=== PATIENT | female | born 1990 | race Caucasian/White ===

== ENCOUNTER 2017-11-19 11:22 | Emergency (ER) | payer SELFPAY ==
--- NOTE | 2017-11-19 12:24 | EDM.PDOC ---
ED HPI GENERAL MEDICAL PROBLEM - General Chief Complaint: Upper Extremity Injury/Pain Stated Complaint: RIGHT HAND INJURY Time Seen by Provider: 11/19/17 11:57 Source of Information: Reports: Patient History Limitations: Reports: No Limitations - History of Present Illness INITIAL COMMENTS - FREE TEXT/NARRATIVE: 27-year-old female presents for evaluation and treatment of injury to the right hand. Patient reports on Monday she hit her hand against a door. She states initially she had numbness and tingling to the right hand fingers 4 and 5. Reports numbness and tingling has resolved but she still continues to have pain primarily to the right hand fourth and fifth metacarpals and pain with radial and ulnar deviation. Patient is right-handed. Location: Reports: Upper Extremity, Right Left Lower Hand Pain Score (Numeric/FACES): 6 - Related Data Allergies Allergy/AdvReac Type Severity Reaction Status Date / Time bacitracin Allergy Hives Verified 11/19/17 11:53 Home Meds: Home Meds Ibuprofen 400 mg PO Q6HR PRN 11/19/17 [History] Past Medical History - Past Health History Medical/Surgical History: Denies Medical/Surgical History Genitourinary History: Reports: Other (See Below) Other Genitourinary History: gastric ulcer Psychiatric History: Reports: None - Past Surgical History Other HEENT Surgeries/Procedures: wisdom teeth removed Social & Family History - Tobacco Use Smoking Status *Q: Current Every Day Smoker Years of Tobacco use: 12 Packs/Tins Daily: 1 - Caffeine Use Caffeine Use: Reports: Coffee, Tea Caffeine Use Comment: black tea - Recreational Drug Use Recreational Drug Use: Yes Drug Use in Last 12 Months: Yes Recreational Drug Type: Reports: Marijuana/Hashish Recreational Drug Use Frequency: Daily Review of Systems - Review of Systems Review Of Systems: See Below Musculoskeletal: Reports: Hand Pain (4th and 5th metacarpals, associated minor swelling) Skin: Denies: Pruritis Neurological: Reports: Numbness (initally to finger 4 and 5 now resolved), Tingling (initally to fingers 4 and 5 now resolved) ED EXAM, GENERAL - Physical Exam Exam: See Below Exam Limited By: No Limitations General Appearance: Alert, WD/WN, No Apparent Distress Respiratory/Chest: No Respiratory Distress Cardiovascular: Normal Peripheral Pulses, Regular Rate, Rhythm Peripheral Pulses: 2+: Radial (R) Extremities: Normal Inspection, Normal Range of Motion (pain with radial and ulnar deviation, able to make a fist, adduct/abduct fingers, flex and extend fingers and flex and extend wrist), Normal Capillary Refill, Other (minor swelling to the 4th and 5th metacarpals; tenderness to palpation to metcarpals 4 and 5). No: Increased Warmth Neurological: Alert, Oriented Psychiatric: Normal Affect, Normal Mood Skin Exam: Warm, Dry, Normal Color Course - Vital Signs Last Recorded V/S: Last Vital Signs Temp 36.6 C 11/19/17 11:41 Pulse 62 11/19/17 11:41 Resp 16 11/19/17 11:41 BP 103/72 11/19/17 11:41 Pulse Ox 100 11/19/17 11:41 - Radiology Interpretation Free Text/Narrative:: Right hand: 4 views of the right hand were obtained. Comparison: No priors and study. Joint spaces are preserved. No fracture, dislocation or other bony abnormality is seen. Impression: 1. No bony abnormality is seen on right hand exam. - Re-Assessments/Exams Free Text/Narrative Re-Assessment/Exam: 11/19/17 12:55 Reviewed the x-ray results with the patient. We will discharge home at this time. Discharge instructions as documented. Departure - Departure Time of Disposition: 12:56 Disposition: Home, Self-Care 01 Condition: Good Clinical Impression: Hand injury - Discharge Information Instructions: Hand Pain Referrals: PCP,None [Primary Care Provider] - Forms: ED Department Discharge Additional Instructions: Recommend an Jeremiah bandage the hand help reduce swelling. Recommend icing the hand 3 to 4 times a day for 10-15 minutes. [id number] Tylenol or Motrin as needed for pain relief. Expect this to last 1-2 weeks. If you continue to have pain after 2 weeks follow -up with family medicine. you may need to have this re-x-rayed. please return to the er if your symptoms change or worsen.
--- NOTE | 2017-11-19 14:55 | CR ---
Right hand: Four views of the right hand were obtained. Comparison: No prior study. Joint spaces are preserved. No fracture, dislocation or other bony abnormality is seen. Impression: 1. No bony abnormality is seen on right hand exam. Diagnostic code #1
== END 2017-11-19 13:05 | disposition home or self-care (01) ==
LOC: JD.ED 11:22
DX: S69.91XA Unspecified injury of right wrist, hand and finger(s), initial encounter (principal); F17.210 Nicotine dependence, cigarettes, uncomplicated; Z88.1 Allergy status to other antibiotic agents; W22.8XXA Striking against or struck by other objects, initial encounter
CPT/HCPCS: 73130-26-RT; 73130-RT; 99283

== ENCOUNTER 2017-12-28 08:01 | Emergency (ER) | payer SELFPAY ==
--- NOTE | 2017-12-28 08:22 | EDM.PDOC ---
ED HPI GENERAL MEDICAL PROBLEM - General Chief Complaint: Genitourinary Problem Stated Complaint: BURNING WITH URINATION AND LOW BACK PAIN Time Seen by Provider: 12/28/17 08:17 Source of Information: Reports: Patient History Limitations: Reports: No Limitations - History of Present Illness INITIAL COMMENTS - FREE TEXT/NARRATIVE: 27 yo female presents with pain with urination, frequency for the past 3-4 days. Over the last day she believes her symptoms have worsened and this morning she reports nausea, vomiting and increased low back pain. She reports the sensation of incomplete voiding, urinary frequency and burning with urination. She denies hematuria or h/o kidney stones or previous UTIs. This morning shakes. Some chills and fever. Feels better after vomiting 1. Emesis was mostly bilious without blood. 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 Allergy Airway Uncoded 12/28/17 08:18 Tightness Home Meds: Home Meds Levofloxacin [Levaquin] 500 mg PO DAILY #7 tab 12/28/17 [Rx] Past Medical History - Past Health History Medical/Surgical History: Denies Medical/Surgical History Genitourinary History: Reports: Other (See Below) Other Genitourinary History: gastric ulcer Psychiatric History: Reports: None - Past Surgical History Other HEENT Surgeries/Procedures: wisdom teeth removed Social & Family History - Caffeine Use Caffeine Use: Reports: Coffee, Tea Caffeine Use Comment: black tea ED ROS GENERAL - Review of Systems Review Of Systems: See Below Constitutional: Reports: Fever, Chills, Malaise (This morning), Fatigue, Decreased Appetite HEENT: Reports: No Symptoms Respiratory: Reports: No Symptoms Cardiovascular: Reports: No Symptoms Endocrine: Reports: No Symptoms GI/Abdominal: Reports: Abdominal Pain (Suprapubic pressure discomfort) : Reports: Dysuria, Frequency, Urgency. Denies: Flank Pain, Hematuria Musculoskeletal: Denies: Back Pain Skin: Reports: No Symptoms Neurological: Reports: No Symptoms Psychiatric: Reports: No Symptoms Hematologic/Lymphatic: Reports: No Symptoms Immunologic: Reports: No Symptoms ED EXAM, RENAL/ - Physical Exam Exam: See Below Exam Limited By: No Limitations General Appearance: Alert, WD/WN, No Apparent Distress, Other (Afebrile.) Respiratory/Chest: No Respiratory Distress, Lungs Clear, Normal Breath Sounds, No Accessory Muscle Use Cardiovascular: Normal Peripheral Pulses, Regular Rate, Rhythm, No Edema, No Gallop, No Murmur. No: Tachycardia GI/Abdominal: Normal Bowel Sounds, Soft, No Organomegaly, Tender (Suprapubic pressure discomfort only.), Other Extremities: Normal Inspection, Normal Range of Motion, Non-Tender, No Pedal Edema Neurological: Alert, Oriented, CN II-XII Intact, Normal Cognition, Normal Gait Psychiatric: Normal Affect, Normal Mood Skin Exam: Warm, Dry, Intact, Normal Color, No Rash Course - Vital Signs Last Recorded V/S: Last Vital Signs Temp 36.9 C 12/28/17 08:19 Pulse 58 L 12/28/17 09:19 Resp 16 12/28/17 09:19 BP 100/60 12/28/17 09:19 Pulse Ox 100 12/28/17 09:19 - Orders/Labs/Meds Orders: Active Orders 24 hr Category Date Time Status CULTURE URINE [RM] Stat Lab 12/28/17 08:10 Received HCG QUALITATIVE,URINE [URCHEM] Stat Lab 12/28/17 08:16 Ordered UA W/MICROSCOPIC [URIN] Stat Lab 12/28/17 08:10 Ordered Labs: Laboratory Tests 12/28/17 12/28/17 Range/Units 08:10 08:16 Urine Color [place] H (Yellow) Urine Appearance Slt cloudy H (Clear) Urine pH 8.5 H (5.0-8.0) Ur Specific [place] 1.020 (1.005-1.030) Urine Protein 2+ H (Negative) Urine Glucose (UA) Trace H (Negative) Urine Ketones Trace H (Negative) Urine Occult Blood 2+ H (Negative) Urine Nitrite Positive H (Negative) Urine Bilirubin 1+ H (Negative) Urine Urobilinogen 2.0 H (0.2-1.0) Ur Leukocyte Esterase 3+ H (Negative) Urine RBC 10-20 H (0-5) /hpf Urine WBC 10-20 H (0-5) /hpf Ur Epithelial Cells 5-10 H (0-5) /hpf Urine Bacteria Few (FEW) /hpf Urine Mucus Few (FEW) /hpf Urine HCG, Qual Negative (NEGATIVE) Meds: Medications Discontinued Medications Generic Name Dose Route Start Last Admin Trade Name Larissa PRN Reason Stop Dose Admin Ondansetron HCl 4 mg 12/28/17 08:28 12/28/17 08:52 Zofran Odt PO 12/28/17 08:29 4 mg ONETIME ONE Administration - Radiology Interpretation Free Text/Narrative:: 27-year-old female attends the ED with urinary tract symptoms of dysuria urgency and frequency starting day before yesterday. She states she took Midol 2 days ago for low back discomfort. Maybe her. Was coming. Skull is she developed dysuria urgency and frequency this morning had nausea and vomiting 1 associated with mild fever and chills. Feels better after vomiting. Denies any flank pain. She's been taking Azo [id number] which is created a orange color to her urine. She has never had a urinary tract infection before. She should not denies any possibility of as she is homosexual. Plan urinalysis to be done. Given Zofran 4 mg sublingually to ease her nausea at this time. - Re-Assessments/Exams Free Text/Narrative Re-Assessment/Exam: 12/28/17 09:00 Urinalysis is returned. His origin color due to taking Azo over- the-counter. This is also altered the urinary pH is elevated at 8.5. 2+ protein year 2+ occult blood positive nitrates 1+ bilirubin 3+ leukocyte esterase 10-20 RBCs per power field 10-20 W species her half her field beta-hCG was negative. She will be placed on Levaquin 500 mg once daily for 7 days to clear up urinary tract infection. Departure - Departure Time of Disposition: 09:02 Disposition: Home, Self-Care 01 Condition: Fair Clinical Impression: Urinary tract infection Qualifiers: Urinary tract infection type: site unspecified - Discharge Information Prescriptions: Levofloxacin [Levaquin] 500 mg PO DAILY #7 tab Instructions: Urinary Tract Infection, Adult Referrals: PCP,None [Primary Care Provider] - Forms: ED Department Discharge Additional Instructions: Evaluation the emergency room this morning in regards to signs and symptoms of lower urinary tract infection. This is confirmed on urinalysis with many pus cells and positive nitrates in the urinalysis. Urine culture will be ordered although it may not grow out anything that she been taking [id number] Azo to ease the discomfort. Treatment is to take antibiotic Levaquin 500 milligrams once daily for the next 7 days to clear up infection. She should notice a difference in symptoms within 24 hours time. Continue to drink plenty of fluids to flush the system. Diet as tolerated - My Orders Last 24 Hours: My Active Orders 12/28/17 08:10 CULTURE URINE [RM] Stat UA W/MICROSCOPIC [URIN] Stat 12/28/17 08:16 HCG QUALITATIVE,URINE [URCHEM] Stat - Assessment/Plan Last 24 Hours: My Active Orders 12/28/17 08:10 CULTURE URINE [RM] Stat UA W/MICROSCOPIC [URIN] Stat 12/28/17 08:16 HCG QUALITATIVE,URINE [URCHEM] Stat
[2017-12-28] MEDS ORDERED: Ondansetron 4 MG Tab.DIS PO ONE (08:28)
== END 2017-12-28 09:15 | disposition home or self-care (01) ==
LOC: JD.ED 08:01
DX: N39.0 Urinary tract infection, site not specified (principal); Z88.1 Allergy status to other antibiotic agents
CPT/HCPCS: 81001; 81025; 87086; 99283; A9270

== ENCOUNTER 2017-12-31 08:33 | Emergency (ER) | payer SELFPAY ==
--- NOTE | 2017-12-31 08:55 | EDM.PDOC ---
ED HPI GENERAL MEDICAL PROBLEM - General Chief Complaint: Genitourinary Problem Stated Complaint: POSS. UTI Time Seen by Provider: 12/31/17 08:55 Source of Information: Reports: Patient History Limitations: Reports: No Limitations - History of Present Illness INITIAL COMMENTS - FREE TEXT/NARRATIVE: 27-year-old female returns to the ED with increased right flank pain right lower abdominal pain now radiating down towards the vulva vagina. She was diagnosed with a suspect urinary tract infection last week and she did have a positive urinalysis with heavy use of Azo which interrupted the culture. She's been on Levaquin 500 mg once daily and was doing fine up until again this morning when the pain recurred. The history now is much more suggestive of a kidney stone. Current pain is felt in the right groin rating to the vulva vagina. Associated nausea and vomiting due to the intensity of the pain. She has a family history of stones but she herself has never had a kidney stone in the past. Denies fever or chills. Onset: Other (Initial symptoms started Monday,December 27. She was treated for urinary tract infection starting , December 28 and first several days felt pretty good. However getting pain returned this morning associate with nausea and vomiting) Onset Date: 12/31/17 (Recurrence of right flank pain right groin pain suggestive of renal stone) Duration: Hour(s): Location: Reports: Abdomen (Right flank right lower abdomen and groin pain), Radiates to (Vulva.) Quality: Reports: Ache, Sharp, Stabbing Severity: Severe (Pain can be as much is 10 out of 10 currently rates as 4-6 out of 10.) Improves with: Reports: None Worsens with: Reports: None (No position is comfortable) Context: Denies: Activity, Exercise, Trauma, Other Associated Symptoms: Reports: Fever/Chills 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 Currently on a course of Levaquin 500 mg daily which is completed for tabs) Lower Pelvic Pain Score (Numeric/FACES): 4 - Related Data Allergies Allergy/AdvReac Type Severity Reaction Status Date / Time bacitracin Allergy Hives Verified 12/31/17 08:43 antibiotic? Allergy Airway Uncoded 12/31/17 08:43 Tightness Home Meds: Home Meds Levofloxacin [Levaquin] 500 mg PO DAILY #7 tab 12/28/17 [Rx] Ondansetron [Zofran] 4 mg BUCCAL Q6H PRN #10 tab 12/31/17 [Rx] oxyCODONE HCl/Acetaminophen [Percocet 5-325 mg Tablet] 1 - 2 each PO Q4H PRN # 20 tablet 12/31/17 [Rx] Past Medical History - Past Health History Medical/Surgical History: Denies Medical/Surgical History Genitourinary History: Reports: Other (See Below) Other Genitourinary History: gastric ulcer Psychiatric History: Reports: None - Past Surgical History Other HEENT Surgeries/Procedures: wisdom teeth removed Social & Family History - Caffeine Use Caffeine Use: Reports: Coffee, Tea Caffeine Use Comment: black tea - Recreational Drug Use Recreational Drug Use: Yes Drug Use in Last 12 Months: Yes Recreational Drug Type: Reports: Marijuana/Hashish - Living Situation & Occupation Living situation: Reports: Single Occupation: Employed Social History Comment: homosexual. ED ROS GENERAL - Review of Systems Review Of Systems: See Below Constitutional: Reports: Chills, Malaise (Intermittent chills), Weakness, Fatigue, Decreased Appetite. Denies: Fever, Weight Loss (Since sleep is been disrupted due to the pain) HEENT: Reports: No Symptoms Respiratory: Reports: No Symptoms Cardiovascular: Reports: No Symptoms Endocrine: Reports: No Symptoms GI/Abdominal: Reports: Abdominal Pain : Reports: Flank Pain (Right side intermittently.) Musculoskeletal: Reports: No Symptoms Skin: Reports: No Symptoms Neurological: Reports: No Symptoms Psychiatric: Reports: No Symptoms Hematologic/Lymphatic: Reports: No Symptoms Immunologic: Reports: No Symptoms ED EXAM, GI/ABD - Physical Exam Exam: See Below Exam Limited By: No Limitations General Appearance: Alert, WD/WN, Mild Distress Eyes: Bilateral: Normal Appearance (No jaundice.) Throat/Mouth: Normal Inspection, Normal Lips, Normal Teeth, Normal Gums Head: Atraumatic, Normocephalic Neck: Normal Inspection, Supple, Non-Tender, Full Range of Motion Respiratory/Chest: No Respiratory Distress, Lungs Clear, Normal Breath Sounds Cardiovascular: Normal Peripheral Pulses, Regular Rate, Rhythm, No Edema GI/Abdominal Exam: Normal Bowel Sounds, Soft, Non-Tender, No Organomegaly, No Abnormal Bruit, No Mass, Pelvis Stable. No: Guarding Back Exam: Normal Inspection, Full Range of Motion. No: CVA Tenderness (L), CVA Tenderness (R) Extremities: Normal Inspection, Normal Range of Motion, Non-Tender, No Pedal Edema Neurological: Alert, Oriented, CN II-XII Intact, Normal Cognition Psychiatric: Normal Affect, Normal Mood Skin Exam: Warm, Dry, Intact, Normal Color, No Rash Course - Vital Signs Last Recorded V/S: Last Vital Signs Temp 37.1 C 12/31/17 08:39 Pulse 78 12/31/17 08:39 Resp BP 111/78 12/31/17 08:39 Pulse Ox 100 12/31/17 08:39 - Orders/Labs/Meds Orders: Active Orders 24 hr Category Date Time Status Abdomen wo Cont [CT] Stat Exams 12/31/17 09:02 Taken URINALYSIS W/MICROSCOPIC [UA W/MICROSCOPIC] [URIN] Stat Lab 12/31/17 09:15 Ordered Dextrose 5%-0.9% NaCl [Dextrose 5%-Normal Saline] 1,000 Med 12/31/17 09:15 Active ml IV ASDIRECTED Ketorolac [Toradol] Med 12/31/17 10:00 Active 30 mg IVPUSH ONETIME Durable Medical Equipment for Discharge [DME for Oth 12/31/17 09:55 Ordered Discharge] [COMM] Stat Medication Orders Dextrose/Sodium Chloride (Dextrose 5%-Normal Saline) 1,000 mls @ 500 mls/hr IV ASDIRECTED [facility] Last Admin: 12/31/17 09:28 Dose: 500 mls/hr Ketorolac Tromethamine (Toradol) 30 mg IVPUSH ONETIME [facility] Last Admin: 12/31/17 10:17 Dose: 30 mg Labs: Laboratory Tests 12/31/17 Range/Units 09:15 Urine Color Light yellow (Yellow) Urine Appearance Clear (Clear) Urine pH 8.5 H (5.0-8.0) Ur Specific [place] 1.020 (1.005-1.030) Urine Protein Negative (Negative) Urine Glucose (UA) Negative (Negative) Urine Ketones Negative (Negative) Urine Occult Blood 2+ H (Negative) Urine Nitrite Negative (Negative) Urine Bilirubin Negative (Negative) Urine Urobilinogen 0.2 (0.2-1.0) Ur Leukocyte Esterase Negative (Negative) Urine RBC 5-10 H (0-5) /hpf Urine WBC 0-5 (0-5) /hpf Ur Epithelial Cells 0-5 (0-5) /hpf Urine Bacteria Few (FEW) /hpf Urine Mucus Not seen (FEW) /hpf Meds: Medications Generic Name Dose Route Start Last Admin Trade Name Larissa PRN Reason Stop Dose Admin Dextrose/Sodium Chloride 1,000 mls @ 500 mls/hr 12/31/17 09:15 12/31/17 09:28 Dextrose 5%-Normal Saline IV 500 mls/hr ASDIRECTED LISA Administration Ketorolac Tromethamine 30 mg 12/31/17 10:00 12/31/17 10:17 Toradol IVPUSH 30 mg ONETIME LISA Administration Discontinued Medications Generic Name Dose Route Start Last Admin Trade Name Larissa PRN Reason Stop Dose Admin Hydromorphone HCl 0.5 mg 12/31/17 09:02 12/31/17 09:28 Dilaudid IVPUSH 12/31/17 09:03 0.5 mg ONETIME ONE Administration Metoclopramide HCl 5 mg 12/31/17 09:02 12/31/17 09:27 Reglan IVPUSH 12/31/17 09:03 5 mg ONETIME ONE Administration - Radiology Interpretation Free Text/Narrative:: 27-year-old female presents to the ED with severe right lower quadrant abdominal pain rating towards the vulva. Pain also in her right flank. She was treated as last week for a suspect urinary tract infection with reported fever chills nausea and dysuria urgency frequency. The urinalysis was contaminated by 80s with the patient been taking but otherwise was strongly positive. The culture did not grow much just contaminants. This could be because of the Azo however. She is on Levaquin 500 mg once daily and is currently on day 4 of 7 day treatment plan. Today however her pain came on suddenly highly suggestive of a kidney stone. The pain is rating down into the right groin and vulvar area suggesting its in the UVJ. Plan IV D5 normal saline at 500 mils per hour. Given Dilaudid 0.5 mg IV with Reglan 5 mg IV as she is not very big. CT the abdomen / pelvis will be done per renal protocol. - Re-Assessments/Exams Free Text/Narrative Re-Assessment/Exam: 12/31/17 09:56 CT evaluation reveals moderate hydronephrosis of the right kidney with dilated renal pelvis. There appears to be a 2.8-3 mm stone in the distal right ureter causing this obstruction. It looks like it has about 3 cm to go before reaches the urinary bladder. There are multiple small stones in both renal parenchyma largest is about 3 mm on the left side near the renal pelvis. To be therefore discharged home on Percocet tabs 5/325 one or 2 every 4- 6 hours needed for pain relief. Zofran 4 mg sublingually every 4-6 hours needed for nausea or vomiting relief. The urinary cystoscopy to make sure she collects the stone and confirms she has passed it. She also reveals extensive constipation throughout the entire colon. Patient will be instructed to use MiraLAX powder 17 g once daily for the next few weeks to make sure her bowels become more regular. Particularly while she is on the pain medication. Departure - Departure Time of Disposition: 09:58 Disposition: Home, Self-Care 01 Condition: Fair Clinical Impression: Renal colic on right side - Discharge Information Prescriptions: Ondansetron [Zofran] 4 mg BUCCAL Q6H PRN #10 tab PRN Reason: nausea or vomiting oxyCODONE HCl/Acetaminophen [Percocet 5-325 mg Tablet] 1 - 2 each PO Q4H PRN # 20 tablet PRN Reason: pain relief. Instructions: Kidney Stones, Kidney Stones, [id number] Referrals: PCP,None [Primary Care Provider] - Forms: ED Department Discharge Additional Instructions: Evaluation the emergency room today in regards to sudden onset of severe right flank pain associated with pressure sensation down into the gentle area. Previously seen last week with signs and symptoms of urinary tract infection with reported fever chills dysuria urgency and frequency. Unfortunately to to taking Azo the urine culture grew out only a few organisms. However the urinalysis was suggestive of an infective process at that time with nitrates blood and pus cells in the urine. You're treated with Levaquin 500 mg once daily and I want you to continue this antibiotic until it is completely done. CT scan done today reveals multiple stones in each kidney . There are 4 stones currently within the right kidney and 3 within the left. Currently there is a partially obstructing 3 mm stone in the lower part of the right ureter that is causing your current pain and refers the pain down towards the bladder and gentle area. Is likely to pass on its own sometime in the next week or 2. Hurts when it starts to move. Drink plenty of fluids and stay as active as possible. When the pain is severe take Zofran 4 mg under tongue and 10 minutes later take your Percocet tablet either one or 2 tablets every 4 hours. Due to her size I would suggest that one tablet first. He may also take Motrin 600 mg with it. Strain the urine until stone is been identified to have passed. The stone does not need to be analyzed. As above CT shows multiple stones in the kidneys and therefore you're to be on a no calcium added diet. Avoid Tums and Rolaids for heartburn as well. If you have not past the stone the next 2 weeks and follow- up with your personal care physician as urology consultation would be indicated at that time. The stone has a 95% chance of passage however. Also appreciated on CT scan that you have a fair amount of stool throughout the colon compatible with constipation. The pain pills tend to make this even worse. Strongly suggest that you purchase some MiraLAX powder 17 g once daily for the next 2 weeks to make sure your bowel stay regular and active. - My Orders Last 24 Hours: My Active Orders 12/31/17 09:02 Abdomen wo Cont [CT] Stat 12/31/17 09:15 URINALYSIS W/MICROSCOPIC [UA W/MICROSCOPIC] [URIN] Stat Dextrose 5%-0.9% NaCl [Dextrose 5%-Normal Saline] 1,000 ml IV ASDIRECTED 12/31/17 09:55 Durable Medical Equipment for Discharge [DME for Discharge] [COMM] Stat 12/31/17 10:00 Ketorolac [Toradol] 30 mg IVPUSH ONETIME - Assessment/Plan Last 24 Hours: My Active Orders 12/31/17 09:02 Abdomen wo Cont [CT] Stat 12/31/17 09:15 URINALYSIS W/MICROSCOPIC [UA W/MICROSCOPIC] [URIN] Stat Dextrose 5%-0.9% NaCl [Dextrose 5%-Normal Saline] 1,000 ml IV ASDIRECTED 12/31/17 09:55 Durable Medical Equipment for Discharge [DME for Discharge] [COMM] Stat 12/31/17 10:00 Ketorolac [Toradol] 30 mg IVPUSH ONETIME
[2017-12-31] MEDS ORDERED: Metoclopramide 10 MG/2 ML SDV IVPUSH ONE (09:02)
[2017-12-31] MEDS ORDERED: HYDROmorphone 0.5 MG/0.5 ML SYRINGE IVPUSH ONE (09:02)
[2017-12-31] MEDS ORDERED: Dextrose 5%-0.9% NaCl 1,000 ML IV SCH (09:15)
[2017-12-31] MEDS ORDERED: Ketorolac 30 MG/ML SDV IVPUSH SCH (10:00)
--- NOTE | 2018-01-02 08:52 | CT ---
CT abdomen and pelvis Technique: Multiple axial sections were obtained from the top of the kidneys inferiorly through the pubic symphysis. Intravenous and oral contrast was not utilized. Study has been performed as a ureteral stone protocol. Findings: Multiple scattered nonobstructing calculi are seen within both kidneys. These all measure less than 5 mm. Right sided hydronephrosis is seen which is caused by an obstructing distal right ureteral stone measuring approximately 4 mm at the UVJ. No other abnormal calcifications are seen within the ureters. Visualized noncontrast appearance of the liver and spleen are within normal limits. Visualized adrenal glands are within normal limits. Visualized pancreas appears within normal limits as seen. Gallbladder contains no calcified gallstones. Aorta shows no aneurysmal dilatation. No retroperitoneal adenopathy or mesenteric abnormalities are seen. Mild increased stool is noted throughout the colon. No free fluid or inflammatory change is seen. Appendix is felt to be visualized and appears within normal limits. Impression: 1. Right-sided hydronephrosis caused by an obstructing distal right ureteral stone measuring around 4 mm. Nonobstructing calculi seen within both kidneys. 2. Mild increased stool throughout the colon. Diagnostic code #3 Agree with preliminary report issued by [employer] ([facility] preliminary report dictated on 12/31/17, 11:29 AM Central Time) [facility]
== END 2017-12-31 10:42 | disposition home or self-care (01) ==
LOC: JD.ED 08:33
DX: N23 Unspecified renal colic (principal); Z88.1 Allergy status to other antibiotic agents
CPT/HCPCS: 74150; 81001; 96361; 96374; 96375; 99284; J1170; J1885; J2765; J7042

== ENCOUNTER 2018-03-19 04:49 | Emergency (ER) | payer SELFPAY ==
[2018-03-19] MEDS ORDERED: Proparacaine 0.5% Ophth Soln 15 ML Bottle EYERT STA (05:05)
[2018-03-19] MEDS ORDERED: Fluorescein 0.6 MG Ophth Strip EYERT STA (05:06)
--- NOTE | 2018-03-19 05:32 | EDM.PDOC ---
ED HPI GENERAL MEDICAL PROBLEM - General Chief Complaint: Eye Problems Stated Complaint: [facility] Time Seen by Provider: 03/19/18 05:02 Source of Information: Reports: Patient History Limitations: Reports: No Limitations - History of Present Illness INITIAL COMMENTS - FREE TEXT/NARRATIVE: The patient states that a piece of wood from a broken would picture frame struck her right eye around 19:00 to 21:00 last night. She presents by EMS with right eye pain, a foreign body sensation, and photophobia. She is otherwise uninjured. The patient does not have a PCP. Right Eye Pain Score (Numeric/FACES): 10 - Related Data Allergies Allergy/AdvReac Type Severity Reaction Status Date / Time bacitracin Allergy Hives Verified 12/31/17 08:43 clindamycin Allergy Rash Verified 03/19/18 05:04 levofloxacin [From Levaquin] Allergy Numbness Verified 03/19/18 05:04 Home Meds: Home Meds Ketorolac [Acular 0.5% Ophth Soln] 1 drop EYERT Q6H PRN #1 bottle 03/19/18 [Rx] Past Medical History Gastrointestinal History: Reports: PUD - Past Surgical History HEENT Surgical History: Reports: Oral Surgery (3 wisdom teeth extracted) Social & Family History - Family History Family Medical History: Noncontributory - Tobacco Use Smoking Status *Q: Former Smoker Tobacco Use Within Last Twelve Months: Other (See Below) (Currently Vapes) Years of Tobacco use: 10 Packs/Tins Daily: 1 Month/Year Tobacco Last Used: Quit 2015 - Caffeine Use Caffeine Use: Reports: Coffee, Tea Caffeine Use Comment: black tea - Alcohol Use Alcohol Use History: No - Recreational Drug Use Recreational Drug Use: Yes Drug Use in Last 12 Months: Yes Recreational Drug Type: Reports: Marijuana/Hashish (last smoked early Mar 2018) , Other (see below) (Kratom) - Living Situation & Occupation Living situation: Reports: Single, Alone Occupation: Employed (longterm) ED ROS GENERAL - Review of Systems Review Of Systems: ROS reveals no pertinent complaints other than HPI. ED EXAM GENERAL W FULL EYE - Physical Exam Exam: See Below Exam Limited By: Other (Due to photophobia, the patient did not want the lights on) General Appearance: Alert, WD/WN Eyelids: Bilateral: Normal Appearance Conjunctiva & Sclera: Right: Injected, Left: Normal Appearance Cornea Exam: Right: Corneal Abrasion (5:00 position), Examined with Flourescein , Left: Normal Appearance Extraocular Movements: Bilateral: Intact Pupils: Normal Accommodation Pupillary Size: Bilateral: 5 mm Pupillary Reaction: Bilateral: Brisk Anterior Chamber: Bilateral: Normal Appearance Course - Vital Signs Last Recorded V/S: Last Vital Signs Temp 36.5 C 03/19/18 04:59 Pulse 78 03/19/18 04:59 Resp 18 03/19/18 04:59 BP 113/69 03/19/18 04:59 Pulse Ox 99 03/19/18 04:59 - Orders/Labs/Meds Meds: Medications Discontinued Medications Generic Name Dose Route Start Last Admin Trade Name Larissa PRN Reason Stop Dose Admin Fluorescein Sodium 0.6 mg 03/19/18 05:06 03/19/18 05:15 Ful-Bee EYERT 03/19/18 05:07 0.6 mg ONETIME STA Administration Proparacaine HCl 1 ml 03/19/18 05:05 03/19/18 05:17 Proparacaine 0.5% Ophth Soln EYERT 03/19/18 05:06 2 drop ONETIME STA Administration - Re-Assessments/Exams Free Text/Narrative Re-Assessment/Exam: 03/19/18 05:30 The right eye was anesthetized with proparacaine, then stained with fluorescein. A punctate corneal abrasion was seen at the 5 o'clock position. No other abnormalities identified, and no foreign body found. The patient will be discharged home with a prescription for Acular. Departure - Departure Time of Disposition: 05:26 Disposition: Home, Self-Care 01 Condition: Good Clinical Impression: Corneal abrasion, right - Discharge Information *PRESCRIPTION DRUG MONITORING PROGRAM REVIEWED*: Not Applicable *COPY OF PRESCRIPTION DRUG MONITORING REPORT IN PATIENT JACOB: Not Applicable Additional Instructions: You were seen in the emergency room for right eye pain, after being struck with a piece of wood. On examination, you have a corneal abrasion. A prescription for the eye-pain medicine Acular has been sent to [facility]. Instill 1 drop into your right eye every 6 hours, as needed for pain. You should expect this condition to resolve within 3-5 days. If it has not, please follow-up with an eye doctor, for further evaluation. If any other problems, please do not hesitate to return to the ER.
== END 2018-03-19 05:45 | disposition home or self-care (01) ==
LOC: JD.ED 04:49
DX: S05.01XA Injury of conjunctiva and corneal abrasion without foreign body, right eye, initial encounter (principal); Z87.891 Personal history of nicotine dependence; Z88.1 Allergy status to other antibiotic agents; W22.8XXA Striking against or struck by other objects, initial encounter
CPT/HCPCS: 99283

== ENCOUNTER 2023-08-28 12:28 | Emergency (ER) | payer BC, OTHER ==
[2023-08-28] MEDS ORDERED: Sodium Chloride 0.9% 10 ML Syringe FLUSH PRN (12:34)
[2023-08-28] MEDS ORDERED: HYDROmorphone 0.5 MG/0.5 ML Syringe IVPUSH ONE (12:37)
[2023-08-28 13:05] LABS: BASOPHILS PERCENT AUTO 0.8 % (0.0-1.0); EOSINOPHILS ABSOLUTE AUTO 0.1 K/mm3 (0.0-0.4); EOSINOPHILS PERCENT AUTO 2.2 % (0.0-6.0); HEMATOCRIT 37.2 % (37.0-47.0); HEMOGLOBIN 11.9 gm/dl (12.0-16.0); IMMATURE GRAN ABSOLUTE AUTO 0.02 K/mm3 (0.00-0.05); IMMATURE GRAN PERCENT AUTO 0.4 % (0.0-0.4); LYMPHOCYTES ABSOLUTE AUTO 1.6 K/mm3 (1.0-4.8); MEAN CORPUSCULAR HEMOGLOBIN 26.6 pg (28.0-32.0); MEAN PLATELET VOLUME 11.6 fl (9.4-12.3); MONOCYTES ABSOLUTE AUTO 0.5 K/mm3 (0.0-0.8); MONOCYTES PERCENT AUTO 9.3 % (0.0-8.0); NEUTROPHILS ABSOLUTE AUTO 2.8 K/mm3 (1.8-7.7); NEUTROPHILS PERCENT AUTO 56.3 % (41.0-71.0); PLATELET COUNT,PLT 267 K/mm3 (150-400); RED BLOOD CELL COUNT 4.48 M/mm3 (4.10-5.30); WHITE BLOOD CELL COUNT,WBC 5.04 K/mm3 (3.9-11.3)
[2023-08-28] MEDS ORDERED: Iopamidol 612 MG/ML 100 ML Bottle IVPUSH ONE (13:09)
[2023-08-28] MEDS ORDERED: Sodium Chloride 0.9% 10 ML Syringe FLUSH ONE (13:09)
[2023-08-28 13:38] LABS: A/G RATIO 1.1 (1-2); ALBUMIN 3.8 g/dl (3.4-5.0); ANION GAP 14.4 (5-15); BILIRUBIN TOTAL 0.3 mg/dL (0.2-1.0); CALCIUM 9.1 mg/dL (8.5-10.1); CREATININE 0.8 mg/dL (0.55-1.02); EST CRCL DRUG DOSING (CG) 79.11 mL/min; POTASSIUM,K 3.4 mEq/L (3.5-5.1); PROTEIN TOTAL,TP 7.4 g/dl (6.4-8.2)
== END 2023-08-28 16:08 | disposition home or self-care (01) ==
LOC: JD.ED 12:28
DX: S29.9XXA Unspecified injury of thorax, initial encounter (principal); V89.2XXA Person injured in unspecified motor-vehicle accident, traffic, initial encounter; Z88.1 Allergy status to other antibiotic agents
CPT/HCPCS: 36415; 70450; 71045; 71260; 72125; 74177; 80053; 80307; 83690; 84703; 85025; 96374; 99285; J1170; J3490; Q9967; 99284

== ENCOUNTER 2025-07-10 01:31 | Emergency (ER) | payer BC, OTHER | END 2025-07-10 02:19 | disposition home or self-care (01) | LOC: JD.ED 01:31 | DX: S06.0X0A Concussion without loss of consciousness, initial encounter (principal); Z88.1 Allergy status to other antibiotic agents; W00.0XXA Fall on same level due to ice and snow, initial encounter | CPT/HCPCS: 70450; 99283; A9270 ==